=== PATIENT | female | born 1950 | race Hispanic/Latino ===

== ENCOUNTER → 2020-09-26 | Outpatient (CLI) | payer MEDICARE ==
[~2020-09-26] MED LIST: ASPI-1012 PO; HYDR-4457 PO; HYDR25TA PO; LISI40TA4 PO; METF-444 PO; OMEP40CA13 PO; SIMV10TA97 PO; TRAM50TA4 PO
== END | disposition home or self-care (01) ==
LOC: RAH 11:34
PROVIDERS: ATTEND Physical Medicine & Rehabilitation
DX: M50.10 Cervical disc disorder with radiculopathy, unspecified cervical region (principal); M51.16 Intervertebral disc disorders with radiculopathy, lumbar region; M51.14 Intervertebral disc disorders with radiculopathy, thoracic region; Z90.49 Acquired absence of other specified parts of digestive tract; G95.89 Other specified diseases of spinal cord
CPT/HCPCS: 72050; 72074; 72110

== ENCOUNTER → 2020-11-01 | Outpatient (CLI) | payer MEDICARE | END | disposition home or self-care (01) | LOC: RAH 13:20 | PROVIDERS: ATTEND Physical Medicine & Rehabilitation | DX: M54.16 Radiculopathy, lumbar region (principal); M54.12 Radiculopathy, cervical region; M62.838 Other muscle spasm; M48.02 Spinal stenosis, cervical region | CPT/HCPCS: 72141; 72148 ==

== ENCOUNTER → 2021-05-06 | Outpatient (CLI) | payer MEDICARE ==
[~2021-05-06] MED LIST changes: -LISI40TA4 PO; +LISI40TA9 PO; -OMEP40CA13 PO; +OMEP40CA21 PO
== END | disposition home or self-care (01) ==
LOC: RAH 16:17
PROVIDERS: ATTEND Physical Medicine & Rehabilitation
DX: M75.41 Impingement syndrome of right shoulder (principal); M75.42 Impingement syndrome of left shoulder; M75.102 Unspecified rotator cuff tear or rupture of left shoulder, not specified as traumatic
CPT/HCPCS: 73030

== ENCOUNTER 2022-04-13 06:54 | Day surgery (SDC) | payer MEDICARE ==
[~2022-04-13] VITALS: Ht 162.6 cm; Wt 73.9 kg
[~2022-04-13 06:54] MED LIST changes: -ASPI-1012 PO; +CARV6.25 PO; +ESOM40SU2 PO; +FENO145T26 PO; -HYDR-4457 PO; -OMEP40CA21 PO; -SIMV10TA97 PO; +SPIR25TA6 PO; -TRAM50TA4 PO
[2022-04-13 07:30] VITALS: BP 139/73
[2022-04-13] MEDS ORDERED: PROPOFOL 10 MG/ML 20ML VIAL IV ONE ×3 (08:13→08:31)
[2022-04-13] MEDS ORDERED: LIDOCAINE HCL 400MG/20ML VIAL ONE (08:13)
[2022-04-13] MEDS ORDERED: 0.9%NACL 1000ML 1,000 ML IV ONE (08:29)
[2022-04-13] MEDS ORDERED: EPHEDRINE SULFATE 50 MG/ML AMPULE ONE (08:31)
[2022-04-13 08:53] VITALS: BP 107/53
[2022-04-13 08:59] VITALS: BP 108/62
[2022-04-13 09:02] VITALS: BP 110/54
[2022-04-13] MEDS ORDERED: MEPERIDINE-PF 25 MG/ML SYG ONE (09:07)
[2022-04-13 09:16] VITALS: BP 138/67
[2022-04-13 09:35] VITALS: BP 113/58
== END 2022-04-13 10:18 | disposition home or self-care (01) ==
LOC: DAH 06:54
PROVIDERS: ATTEND Surgery
DX: R10.9 Unspecified abdominal pain (principal); K57.30 Diverticulosis of large intestine without perforation or abscess without bleeding; K21.9 Gastro-esophageal reflux disease without esophagitis; K44.9 Diaphragmatic hernia without obstruction or gangrene; I10 Essential (primary) hypertension; E11.9 Type 2 diabetes mellitus without complications; E78.5 Hyperlipidemia, unspecified; Z98.890 Other specified postprocedural states; Z90.710 Acquired absence of both cervix and uterus; Z90.49 Acquired absence of other specified parts of digestive tract; Z82.49 Family history of ischemic heart disease and other diseases of the circulatory system; Z83.3 Family history of diabetes mellitus; Z80.9 Family history of malignant neoplasm, unspecified; Z79.899 Other long term (current) drug therapy
CPT/HCPCS: 43235; 45378; 82948 ×2; 87635; A4215; A4221; A4222; A4223; A4606; A4620; A4663; C9803; J2175; J2704 ×3; J3490 ×2; J7030 ×2

== ENCOUNTER → 2022-04-24 | Outpatient (CLI) | payer MEDICARE ==
[~2022-04-24] MED LIST changes: +ACET-2079 PO; +ASPI-1443 PO; +CIPR500S5 PO; +ESOM40CA54 PO; +GABA-529 PO; +OMEP20TA2 PO; +SPIR25TA PO
== END | disposition home or self-care (01) ==
LOC: RAH 09:41
PROVIDERS: ATTEND Surgery
DX: K44.0 Diaphragmatic hernia with obstruction, without gangrene (principal)
CPT/HCPCS: 74240

== ENCOUNTER 2022-05-02 18:46 | Emergency (ER) | payer MEDICARE ==
[~2022-05-02] VITALS: Ht 162.6 cm; Wt 73.5 kg
[~2022-05-02 18:46] MED LIST changes: -ACET-2079 PO; -ASPI-1443 PO; -CIPR500S5 PO; -ESOM40CA54 PO; -GABA-529 PO; -OMEP20TA2 PO; -SPIR25TA PO
[2022-05-02] MEDS ORDERED: LISI40TA9 PO (19:05)
[2022-05-02] MEDS ORDERED: ACET-2079 PO (19:05)
[2022-05-02] MEDS ORDERED: ESOM40CA54 PO (19:05)
[2022-05-02] MEDS ORDERED: GABA-529 PO (19:05)
[2022-05-02] MEDS ORDERED: SPIR25TA PO (19:05)
[2022-05-02] MEDS ORDERED: ASPI-1443 PO (19:05)
[2022-05-02] MEDS ORDERED: METF-444 PO (19:05)
[2022-05-02] MEDS ORDERED: HYDR25TA PO (19:05)
[2022-05-02] MEDS ORDERED: CIPR500S5 PO (19:05)
[2022-05-02] MEDS ORDERED: CARV6.25 PO (19:05)
[2022-05-02] MEDS ORDERED: FENO145T26 PO (19:05)
[2022-05-02 19:23] LABS: BASOPHILS % (AUTO) 1.1 % (0.0-5.0); EOSINOPHILS % (AUTO) 1.9 % (0.0-8.0); HEMATOCRIT 41.5 % (36-48); LYMPHOCYTES % (AUTO) 15.1 % (21.0-51.0); MEAN CORPUSCULAR HEMOGLOBIN 29.8 pg (27.0-33.0); MEAN CORPUSCULAR HGB CONC 33.5 g/dL (32.0-36.0); MEAN CORPUSCULAR VOLUME 89.1 fL (79-99); NEUTROPHILS % (AUTO) 74.3 % (40.0-77.0); PLATELET COUNT (AUTO) 317 K/uL (130-400); RED BLOOD CELL COUNT(AUTO) 4.66 MIL/uL (4.00-5.50); RED CELL DISTRIBUTION WIDTH 13.1 % (11.0-15.5); WHITE BLOOD COUNT (AUTO) 9.4 K/uL (4.8-10.8)
[2022-05-02 19:33] LABS: CREATININE 1.4 mg/dL (0.5-1.5); POTASSIUM 3.9 mmol/L (3.5-5.1)
[2022-05-02 19:37] LABS: ALBUMIN 3.6 g/dL (3.5-5.0); BILIRUBIN,TOTAL 0.2 mg/dL (0.2-1.0); TOTAL PROTEIN, SERUM 7.3 g/dL (6.0-8.3)
[2022-05-02] MEDS ORDERED: MAG/ALUM/SIMETH 30 ML UDCUP PO ONE (20:00)
[2022-05-02] MEDS ORDERED: NITROGLYCERIN 0.4 MG SL TAB SL PRN (20:00)
[2022-05-02] MEDS ORDERED: LIDOCAINE HCL 2% VISCOUS 15 ML UDCUP PO ONE (20:00)
[2022-05-02 20:13] LABS: APPEARANCE,URINE SL CLOUDY (CLEAR); BILIRUBIN,URINE NEGATIVE (NEGATIVE); COLOR,URINE YELLOW (YELLOW); GLUCOSE, URINE (UA) NEGATIVE (NEGATIVE); KETONES,URINE NEGATIVE (NEGATIVE); LEUKOCYTE ESTERASE ,URINE NEGATIVE (NEGATIVE); NITRATE,URINE POSITIVE (NEGATIVE); OCCULT BLOOD,URINE NEGATIVE (NEGATIVE); PH,URINE 6.5 (5.0-8.0); PROTEIN,URINE NEGATIVE (NEGATIVE); UROBILINOGEN,URINE 0.2 mg/dL (0.2-1.0)
[2022-05-02 20:29] LABS: BACTERIA,URINE Moderate /HPF (None Seen)
[2022-05-02 20:30] LABS: MUCUS,URINE Few LPF (None Seen); SQUAMOUS EPITHELIAL CELL,UR Few /HPF (0-2)
[2022-05-02] MEDS ORDERED: HYDRALAZINE 20MG/ML VIAL IV ONE (20:30)
[2022-05-02 21:27] VITALS: BP 147/61
[2022-05-02] MEDS ORDERED: OMEP20TA2 PO (21:42)
== END 2022-05-02 22:00 | disposition home or self-care (01) ==
LOC: EDH 18:46
DX: K44.9 Diaphragmatic hernia without obstruction or gangrene (principal); I10 Essential (primary) hypertension; E11.9 Type 2 diabetes mellitus without complications; Z88.1 Allergy status to other antibiotic agents; Z79.82 Long term (current) use of aspirin; Z79.84 Long term (current) use of oral hypoglycemic drugs; Z79.899 Other long term (current) drug therapy; Z90.49 Acquired absence of other specified parts of digestive tract
CPT/HCPCS: 36415; 71045; 80053; 81001; 83880; 84484; 85025; 85378; 87077; 87088; 87186; 93005

== ENCOUNTER 2022-10-19 18:57 | Emergency (ER) | payer MEDICARE ==
[~2022-10-19] VITALS: Ht 157.5 cm; Wt 73.0 kg
[~2022-10-19 18:57] MED LIST changes: +ACET-2079 PO; +ASPI-1443 PO; +CIPR500S5 PO; +ESOM40CA54 PO; -ESOM40SU2 PO; +GABA-529 PO; +OMEP20TA2 PO; +SPIR25TA PO; -SPIR25TA6 PO
[2022-10-19 21:22] LABS: BASOPHILS % (AUTO) 0.7 % (0.0-5.0); EOSINOPHILS % (AUTO) 2.6 % (0.0-8.0); HEMATOCRIT 47.1 % (36-48); LYMPHOCYTES % (AUTO) 29.3 % (21.0-51.0); MEAN CORPUSCULAR HEMOGLOBIN 30.5 pg (27.0-33.0); MEAN CORPUSCULAR HGB CONC 32.9 g/dL (32.0-36.0); MEAN CORPUSCULAR VOLUME 92.7 fL (79-99); MONOCYTES % (AUTO) 13.2 % (3.0-13.0); NEUTROPHILS % (AUTO) 53.9 % (40.0-77.0); PLATELET COUNT (AUTO) 258 K/uL (130-400); RED BLOOD CELL COUNT(AUTO) 5.08 MIL/uL (4.00-5.50); RED CELL DISTRIBUTION WIDTH 12.7 % (11.0-15.5)
[2022-10-19] MEDS ORDERED: AZITHROMYCIN 250 MG TABLET PO ONE (21:30)
[2022-10-19] MEDS ORDERED: SOLU-MEDROL 125MG VIAL IVP ONE (21:30)
[2022-10-19] MEDS ORDERED: ALBUTEROL INHALER 90MCG/INH IH ONE (21:30)
[2022-10-19 21:53] LABS: POTASSIUM 4.9 mmol/L (3.5-5.1)
[2022-10-19 22:03] LABS: ALBUMIN 3.7 g/dL (3.5-5.0); TOTAL PROTEIN, SERUM 7.8 g/dL (6.0-8.3)
[2022-10-19] MEDS ORDERED: PRED20TA3 PO (22:23)
[2022-10-19] MEDS ORDERED: ALBU90AE2 IH (22:23)
[2022-10-19] MEDS ORDERED: AZIT500T2 PO (22:23)
[2022-10-19] MEDS ORDERED: NIRM1TAB PO (22:26)
[2022-10-19 22:36] VITALS: BP 134/74
== END 2022-10-19 22:48 | disposition home or self-care (01) ==
LOC: EDH 18:57
DX: U07.1 COVID-19 (principal); E11.9 Type 2 diabetes mellitus without complications; I10 Essential (primary) hypertension; Z90.49 Acquired absence of other specified parts of digestive tract; Z79.899 Other long term (current) drug therapy; Z79.82 Long term (current) use of aspirin; Z79.84 Long term (current) use of oral hypoglycemic drugs; Z98.890 Other specified postprocedural states
CPT/HCPCS: 99285; 84484; 80053; 85025; 87040 ×2; 87804 ×2; 83605; 36415; 87635; 71045; 96374; 93005; C9803; J2930

== ENCOUNTER → 2023-04-15 | Outpatient (CLI) | payer MEDICARE ==
[~2023-04-15] MED LIST changes: +ALBU90AE2 IH; +AZIT500T2 PO; +NIRM1TAB PO; +PRED20TA3 PO
== END | disposition home or self-care (01) ==
LOC: RAH 10:20
PROVIDERS: ATTEND Internal Medicine Gastroenterology
DX: R10.13 Epigastric pain (principal); R14.0 Abdominal distension (gaseous); R11.0 Nausea; R68.81 Early satiety
CPT/HCPCS: 78264; A9541

== ENCOUNTER 2024-06-27 16:04 | Emergency (ER) | payer MEDICARE ==
[~2024-06-27] VITALS: Ht 165.1 cm; Wt 73.9 kg
[~2024-06-27 16:04] MED LIST changes: -ALBU90AE2 IH; +ALBU90AE3 IH; -ESOM40CA54 PO; +ESOM40CA66 PO
[2024-06-27 16:35] LABS: BASOPHILS # (AUTO) 0.07 K/uL (0.00-0.20); BASOPHILS % (AUTO) 0.8 % (0.0-5.0); EOSINOPHILS # (AUTO) 0.44 K/uL (0.00-0.70); HEMATOCRIT 39.5 % (36-48); IMMATURE GRANULOCYTE ABSOLUTE 0.03 K/uL (0-1); LYMPHOCYTES # (AUTO) 1.9 K/uL (1.0-4.8); LYMPHOCYTES % (AUTO) 22.2 % (21.0-51.0); MEAN CORPUSCULAR HEMOGLOBIN 31.3 pg (27.0-33.0); MEAN CORPUSCULAR HGB CONC 33.7 g/dL (32.0-36.0); MEAN CORPUSCULAR VOLUME 92.9 fL (79-99); MONOCYTES # (AUTO) 0.9 K/uL (0.1-1.0); MONOCYTES % (AUTO) 9.9 % (3.0-13.0); NEUTROPHILS # (AUTO) 5.4 K/uL (1.8-7.7); NEUTROPHILS % (AUTO) 61.8 % (40.0-77.0); PLATELET COUNT (AUTO) 257 K/uL (130-400); RED BLOOD CELL COUNT(AUTO) 4.25 MIL/uL (4.00-5.50); RED CELL DISTRIBUTION WIDTH 12.7 % (11.0-15.5); WHITE BLOOD COUNT (AUTO) 8.7 K/uL (4.8-10.8)
[2024-06-27] MEDS: LACTATED RINGERS 1000ML 1,000 ML IV ONE (16:45)
[2024-06-27 16:46] LABS: INR 0.94 (0.85-1.15); PROTHROMBIN TIME 10.2 SEC (9.6-11.6)
[2024-06-27 16:47] LABS: PARTIAL THROMBOPLASTIN TIME 26.8 SEC (26.3-35.5)
[2024-06-27 17:04] LABS: B-TYPE NATRIURETIC PEPTIDE 14 pg/mL (0-100)
[2024-06-27 17:20] LABS: CREATININE 1.5 mg/dL (0.5-1.0); POTASSIUM 3.9 mmol/L (3.5-5.1)
[2024-06-27 17:36] LABS: MAGNESIUM 1.5 mg/dL (1.80-2.40)
[2024-06-27 17:45] LABS: APPEARANCE,URINE CLEAR (CLEAR); BILIRUBIN,URINE NEGATIVE (NEGATIVE); COLOR,URINE COLORLESS (YELLOW); GLUCOSE, URINE (UA) NEGATIVE (NEGATIVE); KETONES,URINE NEGATIVE (NEGATIVE); LEUKOCYTE ESTERASE ,URINE NEGATIVE Leu/uL (NEGATIVE); NITRATE,URINE NEGATIVE (NEGATIVE); OCCULT BLOOD,URINE NEGATIVE (NEGATIVE); PROTEIN,URINE NEGATIVE (NEGATIVE); UROBILINOGEN,URINE 0.2 mg/dL (0.2-1.0)
[2024-06-27 17:47] LABS: ADD UA MICROSCOPIC NO
[2024-06-27] MEDS: MAGNESIUM 2GM PREMIX 50ML 50 ML IV STA (18:12)
[2024-06-27 18:26] VITALS: BP 150/68; PULSE 51; RESP 16; TEMP 97.8; O2SAT 100
== END 2024-06-27 19:36 | disposition home or self-care (01) ==
LOC: EDH 16:04
DX: E86.0 Dehydration (principal); R00.1 Bradycardia, unspecified; E83.42 Hypomagnesemia; R42 Dizziness and giddiness; E11.9 Type 2 diabetes mellitus without complications; E78.00 Pure hypercholesterolemia, unspecified; I10 Essential (primary) hypertension; Z88.1 Allergy status to other antibiotic agents; Z79.899 Other long term (current) drug therapy; Z79.2 Long term (current) use of antibiotics; Z79.84 Long term (current) use of oral hypoglycemic drugs; Z79.82 Long term (current) use of aspirin; Z98.890 Other specified postprocedural states
CPT/HCPCS: 36415; 70450; 71045; 80048; 81003; 82550; 83605; 83735; 83880; 84484; 85025; 85610; 85730; 93005; 96361; 96374; J3475; J7120

== ENCOUNTER → 2024-08-25 | Outpatient (CLI) | payer MEDICARE | END | disposition home or self-care (01) | LOC: RAH 12:50 | PROVIDERS: ATTEND Physician Assistant | DX: M47.22 Other spondylosis with radiculopathy, cervical region (principal); M48.02 Spinal stenosis, cervical region | CPT/HCPCS: 72141 ==